=== PATIENT | female | born 1995 | race Caucasian/White ===

== ENCOUNTER 2018-11-22 21:16 | Emergency (ER) | payer BC ==
--- NOTE | 2018-11-22 23:52 | EDM.PDOC ---
ED HPI GENERAL MEDICAL PROBLEM - General Chief Complaint: Lower Extremity Injury/Pain Stated Complaint: right leg broken,blood clot last week pain,dizzy Time Seen by Provider: 11/22/18 23:17 Source of Information: Reports: Patient, Significant Other History Limitations: Reports: No Limitations - History of Present Illness INITIAL COMMENTS - FREE TEXT/NARRATIVE: The patient states that she suffered a distal right fibular fracture when she fell in the shower on 11/03/2018. She was seen at the [facility] and placed into a splint. She subsequently developed pain and swelling to her right lower extremity, therefore was seen in this ED, where a Doppler ultrasound demonstrated a DVT. She was prescribed Xarelto and placed into a walking boot. The patient states that she has been compliant with her Xarelto. The patient states that she followed up in the clinic this past Saturday, 2018. No new recommendations were made. The patient now returns to the ED stating that she developed right extremity swelling today. She also reports feeling lightheaded and "out of it". She was evaluated by EMS, who told her that her capillary refill in her right toes were greater than 7 seconds. They recommended that she come to the ED for evaluation. The patient has not yet seen an orthopedic surgeon. She initially stated that she was finding to wait to see one when she returns home to [place] on 2018, but then she recalled that she has an appointment to see Dr. Dumas on 12/2018. The patient's PCP is TEMO Engel. - Related Data Allergies Allergy/AdvReac Type Severity Reaction Status Date / Time Sulfa (Sulfonamide Allergy Difficulty Verified 11/13/18 10:40 Antibiotics) Breathing Home Meds: Home Meds Cholecalciferol (Vitamin D3) [Vitamin D3] 1,000 unit PO WEEKLY 11/13/18 [History ] Hydrocodone/Acetaminophen [Hydrocodon-Acetaminophen 5-325] 1 - 2 each PO Q6HR PRN #20 tablet 11/13/18 [Rx] Levothyroxine [Synthroid] 100 mcg PO ACBREAKFAST 11/13/18 [History] Lisdexamfetamine Dimesylate [Vyvanse] 50 mg PO DAILY 11/13/18 [History] PARoxetine HCl [Paxil] 20 mg PO DAILY 11/13/18 [History] Rivaroxaban [Xarelto] 15 mg PO BID #42 tablet 11/13/18 [Rx] Rivaroxaban [Xarelto] 20 mg PO DAILY #30 tablet 11/13/18 [Rx] buPROPion HCl [Wellbutrin Xl] 300 mg PO DAILY 11/13/18 [History] clonazePAM [Klonopin] 1 mg PO BID 11/13/18 [History] Past Medical History Cardiovascular History: Reports: Blood Clots/VTE/DVT (RLE DVT dx'd 8107/2018) Musculoskeletal History: Reports: Fracture (right distal fibula 11/03/2018) Psychiatric History: Reports: Anxiety, Depression Endocrine/Metabolic History: Reports: Hypothyroidism, Obesity/BMI 30+ - Past Surgical History HEENT Surgical History: Reports: Oral Surgery (wisdom teeth extraction) Social & Family History - Family History Family Medical History: Noncontributory - Tobacco Use Smoking Status *Q: Never Smoker - Caffeine Use Caffeine Use: Reports: Coffee, Energy Drinks, Soda - Alcohol Use Alcohol Use History: Yes Alcohol Use Frequency: Socially - Recreational Drug Use Recreational Drug Use: No - Living Situation & Occupation Living situation: Reports: Single, Other (with friends) Occupation: Employed (Retail) Review of Systems - Review of Systems Review Of Systems: ROS reveals no pertinent complaints other than HPI. ED EXAM, GENERAL - Physical Exam Exam: See Below Exam Limited By: No Limitations General Appearance: Alert, WD/WN, No Apparent Distress Eye Exam: Bilateral Eye: EOMI, Normal Inspection Ears: Normal External Exam, Hearing Grossly Normal Nose: Normal Inspection Throat/Mouth: Normal Inspection, Normal Lips, Normal Voice, No Airway Compromise Head: Atraumatic, Normocephalic Neck: Normal Inspection, Full Range of Motion Respiratory/Chest: No Respiratory Distress, Lungs Clear, Normal Breath Sounds, No Accessory Muscle Use Cardiovascular: Normal Peripheral Pulses, Regular Rate, Rhythm, No Gallop, No JVD, No Murmur, No Rub Peripheral Pulses: 4+: Radial (L), Radial (R) GI/Abdominal: Normal Bowel Sounds, Soft, Non-Tender, No Organomegaly, No Distention, No Abnormal Bruit, No Mass, Other (Obese) (Female) Exam: Deferred Rectal (Female) Exam: Deferred Back Exam: Normal Inspection, Full Range of Motion, NT Extremities: Normal Range of Motion, Normal Capillary Refill, Other (There is swelling to the entire right lower extremity, when compared to the left. This particularly noticeable to the right foot. There is some ecchymosis to the lateral aspect of the distal right leg, over the distal fibula, as well as subtle ecchymosis noted to the lateral aspect of the foot. Capillary refill is nearly instantaneous in the right toes. Neurovascular status of the right lower extremity is intact.) Neurological: Alert, Oriented, Normal Cognition, No Motor/Sensory Deficits Psychiatric: Normal Affect Skin Exam: Warm, Dry, Intact, Normal Color, No Rash Course - Vital Signs Last Recorded V/S: Last Vital Signs Temp 36.6 C 11/22/18 21:44 Pulse 94 11/22/18 21:44 Resp 20 11/22/18 21:44 BP 141/78 H 11/22/18 21:44 Pulse Ox 96 11/22/18 21:44 - Re-Assessments/Exams Free Text/Narrative Re-Assessment/Exam: 11/22/18 23:48 The patient does in fact have swelling to her right lower extremity, however, she is on Xarelto, which will prevent additional DVT from forming. I explained to the patient that Xarelto does not cause the existing DVT to dissolve; her body will either break it down over time, or it won't. There is no indication to repeat a Doppler ultrasound; it would almost certainly demonstrate a DVT, but would not change our management. With respect to EMS's concern that she had a prolonged capillary refill, I find that the patient has near-instantaneous capillary refill to all of her toes, and I strongly doubt that she had prolonged capillary refill when her boot was on, as that would have required compression of her leg to a pressure greater than her arterial pressure, which is highly unlikely. Going forward, I am recommending that the patient elevate her right lower extremity as much as possible to help with the edema, and I will write a note for work for her for a few days. She is to continue to take the Xarelto as prescribed, and I will refer her to Dr. Mccormick. Departure - Departure Time of Disposition: 23:52 Disposition: Home, Self-Care 01 Condition: Good Clinical Impression: Right leg DVT, Fracture of distal end of right fibula - Discharge Information *PRESCRIPTION DRUG MONITORING PROGRAM REVIEWED*: Not Applicable *COPY OF PRESCRIPTION DRUG MONITORING REPORT IN PATIENT MISHEL: Not Applicable Referrals: Harsha Patel PA-C [Primary Care Provider] - Mynor Mccormick MD [Physician] - Forms: ED Department Discharge, ED Return to Work/School Form Additional Instructions: You were seen in the emergency room for continued right lower extremity swelling in the setting of a previous right distal fibular fracture and right lower extremity DVT. On evaluation, your capillary refill was found to be normal. You do have significant edema. We recommend that you continue to take Xarelto as previously prescribed. Elevate your right lower extremity as much as possible. Wear the CAM walking boot whenever ambulating. A note for work has been provided to you. Follow-up with the Orthopedic Surgeon Dr. Mynor Mccormick at the next available appointment. Let the rectangular tank cooper know that this is a follow-up from the ER. If any other problems, please do not hesitate to return to the ER.
== END 2018-11-23 00:04 | disposition home or self-care (01) ==
LOC: JD.ED 21:16
DX: S82.831A Other fracture of upper and lower end of right fibula, initial encounter for closed fracture (principal); I82.401 Acute embolism and thrombosis of unspecified deep veins of right lower extremity; E03.9 Hypothyroidism, unspecified; E66.9 Obesity, unspecified; Z68.41 Body mass index [BMI] 40.0-44.9, adult; Z88.2 Allergy status to sulfonamides; Z79.899 Other long term (current) drug therapy; W18.2XXA Fall in (into) shower or empty bathtub, initial encounter
CPT/HCPCS: 99282; 99283